=== PATIENT | male | born 1955 | race African-American/Black ===

== ENCOUNTER 2018-01-14 05:12 | Day surgery (SDC) | payer BC ==
[~2018-01-14] VITALS: Ht 185.4 cm; Wt 138.3 kg
--- NOTE | ~2018-01-14 | OP ---
PATIENT NAME: SHAWNA HENDRIX MEDICAL RECORD: [id number] :55 LOCATION:[facility] ADMISSION DATE: SURGEON: RADHA SLAUGHTER MD DATE OF OPERATION: 01/14/2018 PREOPERATIVE DIAGNOSES: Lumbar spinal stenosis at L3-L4 and L4-L5 on the right with central canal stenosis and left L3-L4 and L4-L5 foraminal stenosis. PROCEDURES: Lumbar laminotomy, medial facetectomy, and foraminotomy at L3-L4 on right and L4-L5 on right with sublaminar decompression, and left L3-L4 and L4-L5 foraminotomies with METRx retractor. DESCRIPTION AND TECHNIQUE: After induction of general endotracheal anesthesia, the patient was rolled prone on a Ab frame. Lumbar spine was prepped and draped in usual sterile fashion. Fluoroscopic x-ray and spinal needle localized L4-L5 and L3-L4 interspace on the right side. A stab incision was created with a #11 blade. A series of dilators was used to advance a METRx retractor to the L4-L5 interspace on the right side. Microscope and Midas Hemanth drill were used to perform laminotomy, medial facetectomy, and foraminotomy at L4-L5 on the right. Hypertrophied ligamentum flavum was removed with Cloward rongeurs. Following this, the L4 and L5 nerve roots were decompressed well on the right side. The retractor was wanded to the L3-L4 interspace and the laminotomy was extended to the L3-L4 interspace as well as medial facetectomy. Additional hypertrophied ligamentum flavum was removed with Cloward rongeurs. Following this, the L3 and L4 nerve roots decompressed well. Meticulous hemostasis was maintained throughout the wound. The wound was irrigated with copious amounts of Ancef irrigant solution. The fascia was closed with 2-0 Vicryl suture, subdermal layer was closed with 3-0 Vicryl suture, and skin was closed with shirley. A sterile dressing was applied to the wound. The patient was awakened in good condition and taken to recovery. All counts were reported as correct. Estimated blood loss was minimal. TRANSINT:[id number] Voice Confirmation ID: [id number] DOCUMENT ID: [id number] RADHA SLAUGHTER MD at 1361 CC: [id number] DICTATION DATE: 01/14/18 1648 [facility] GATE TENDER: 01/14/18 1815 [facility] 01/14/18 [place] [id number] [place] [id number]
[2018-01-14 05:33] LABS: HEMATOCRIT 35.1 % (42.0-54.0); HEMOGLOBIN 11.1 g/dL (13.5-17.5); MCH 24.8 pg (26.0-34.0); MCHC 31.6 g/dL (31.0-37.0); MCV 78.3 fL (80.0-100.0); MEAN PLATELET VOLUME 8.8 fL (7.4-10.4); RBC 4.48 10x6/uL (4.20-6.10); WBC 5.6 10x3/uL (4.8-10.8)
[2018-01-14 05:54] LABS: ANION GAP 7.2 mmol/L (8-16); CALCIUM 8.5 mg/dL (8.5-10.1); CARBON DIOXIDE 28.9 mmol/L (21.0-32.0); CREATININE - SERUM 1.6 mg/dL (0.6-1.3); POTASSIUM - SERUM 5.1 mmol/L (3.5-5.1)
[2018-01-14] MEDS ORDERED: VITAMIN D250000 UNIT PO (06:21)
[2018-01-14] MEDS ORDERED: HCTZ25 MG PO (06:22)
[2018-01-14] MEDS ORDERED: CLARITIN 10 MG10 MG PO (06:23)
[2018-01-14] MEDS ORDERED: PROTONIX40 MG PO (06:23)
[2018-01-14] MEDS ORDERED: PROZAC20 MG PO (06:23)
[2018-01-14] MEDS ORDERED: [UNRECOGNIZED DRUG - OTHER] PO (06:25)
[2018-01-14] MEDS ORDERED: ZESTRIL40 MG PO (06:25)
[2018-01-14] MEDS ORDERED: ZOCOR40 MG PO (06:26)
[2018-01-14] MEDS ORDERED: ROBAXIN-750750 MG PO (06:26)
[2018-01-14] MEDS ORDERED: TRAZODONE HCL50 MG PO (06:27)
[2018-01-14] MEDS ORDERED: NEURONTIN 300300 MG PO (06:27)
[2018-01-14] MEDS ORDERED: HUMALOG MIX 75/10 ML SQ (06:28)
[2018-01-14 06:46] VITALS: BP 165/85; Ht 185.4 cm; Wt 138.3 kg
[2018-01-14] MEDS ORDERED: HYDROCODONE-APA1 TAB PO (10:37)
== END 2018-01-14 12:45 | disposition home or self-care (01) ==
LOC: D.OPS 05:12 → D.PAN 07:30 → D.OPS 12:45
PROVIDERS: Anesthesiology
DX: M48.061 Spinal stenosis, lumbar region without neurogenic claudication (principal); Z01.812 Encounter for preprocedural laboratory examination